=== PATIENT | female | born 1940 | race Caucasian/White ===

== ENCOUNTER → 2019-07-23 | Outpatient (CLI) | payer OTHER | LOC: M.MRI 07-09 08:30 | DX: S83.242A Other tear of medial meniscus, current injury, left knee, initial encounter (principal); M71.22 Synovial cyst of popliteal space [Baker], left knee; M17.12 Unilateral primary osteoarthritis, left knee; X58.XXXA Exposure to other specified factors, initial encounter; Y93.89 Activity, other specified; Y92.89 Other specified places as the place of occurrence of the external cause; Y99.8 Other external cause status ==

== ENCOUNTER 2019-08-25 08:23 | Inpatient (IN) | payer OTHER ==
[2019-08-13 09:25] LABS: HEMATOCRIT 36.1 % (37.0-47.0); HEMOGLOBIN 11.6 gm/dL (12.0-15.0); MCH 24.7 pg (26.0-34.0); MCHC 32.2 g/dL (28.0-37.0); MCV 76.7 fL (80.0-100.0); MPV 6.8 fl. (7.2-11.1); RBC 4.7 mil/uL (4.20-5.00); RDW-CV 18.7 % (10.5-14.5); WBC 9.6 thou/uL (4.0-11.0)
[2019-08-13 09:35] LABS: INR 1.3; PROTIME 12.9 Seconds (9.20-11.50)
[2019-08-13 09:37] LABS: ALBUMIN 3.2 g/dL (3.4-5.0); CREATININE 1.4 mg/dL (0.6-1.3); TOTAL BILIRUBIN 0.6 mg/dL (<0.1-1.0); TOTAL PROTEIN 7.2 g/dL (6.4-8.2)
[2019-08-13 11:15] LABS: URINE BILIRUBIN NEGATIVE (Negative); URINE BLOOD NEGATIVE (Negative); URINE CLARITY CLEAR; URINE COLOR YELLOW; URINE GLUCOSE-RANDOM NEGATIVE (Negative); URINE KETONES NEGATIVE (Negative); URINE LEUKOCYTES-REFLEX NEGATIVE (Negative); URINE NITRITE-REFLEX NEGATIVE (Negative); URINE PROTEIN TRACE (Negative); URINE UROBILINOGEN 0.2 E.U./dl (0.2-1.0)
[~2019-08-25] VITALS: Ht 157.5 cm; Wt 117.9 kg
[~2019-08-25 08:23] MED LIST: COUMADIN 5 MG TA5 M1 PO; LASIX 80 MG TAB80 MG PO; LIORESAL 10 MG10 MG PO; MAGOX 400400 MG PO; MELATONIN5 M1 PO; METOLAZONE 2.52.5 M1 PO; OMEPRAZOLE 20 M20 M1 PO; OXYCONTIN10 M1 PO; POTASSIUM20 PO; SERTRALINE HCL50 MG PO; SYNTHROID75 MCG PO; TOPROL XL25 MG PO; TRAZODONE HCL100 MG PO; XARELTO20 MG PO; ZOCOR20 MG PO
[2019-08-25 08:50] VITALS: BP 143/80
[2019-08-25 09:38] LABS: INR 1.2; PROTIME 11.9 Seconds (9.20-11.50)
[2019-08-25 14:27] VITALS: BP 100/54
--- NOTE | 2019-08-25 14:38 | NUR ---
PT ARRIVED TO UNIT AT 1410 FROM PACU. VITALS STABLE, CHARTED. IV PATENT, INFUSING. PAIN PARTIALLY CONTROLLED WITH MEDS GIVEN IN PACU, NONE REQUIRED AT THIS TIME. DENIED N/V. DRESSING C/D/I. NO HEMOVAC. TEDS, FOOT PUMPS, SEAN WRAP, CAPNO AND POLAR PACK IN PLACE. ON 2LO2. FAMILY IN ROOM. CALL LIGHT WITHIN REACH. FALL PRECAUTIONS IN [place]. WILL CONTINUE TO MONITOR.
[2019-08-25 16:00] VITALS: BP 107/64
--- NOTE | 2019-08-25 17:36 | NUR ---
PT RESTING SINCE PREVIOUS NOTE. VITALS STABLE. IV PATENT. DRESSING C/D/I. POLAR PACK, TEDS, SCDS, CAPNO, OXYGEN AND SEAN WRAP IN PLACE. PAIN TOLERATED. CALL LIGHT WITHIN REACH. TOLERATING FOOD. HAS URINATED. FALL PREACAUTIONS IN PLACE. WILL CONTINUE TO MONITOR.
[2019-08-25 21:30] VITALS: BP 125/64
[2019-08-26] VITALS: BP 124/84
[2019-08-26 04:00] VITALS: BP 124/65
[2019-08-26 05:04] LABS: HEMATOCRIT 27.9 % (37.0-47.0); HEMOGLOBIN 8.8 gm/dL (12.0-15.0)
--- NOTE | 2019-08-26 07:16 | NUR ---
PT ALERT AND ORIENTED. VITALS STABLE WITH 2L BY NC. MEDS GIVEN ORDERED. PAIN MANAGED BY NORCO. DRESSING TO LT KNEE C/D/I. PT UP TO BSC WITH MAX ASSIST. NO NAUSEA OR VOMITING. POLAR PACK, SCDS IN PLACE. FLUID RUNNING ORDERED. HOURLY ROUNDING COMPLETED. WILL CONTINUE TO MONITOR.
[2019-08-26 07:45] VITALS: BP 144/65
--- NOTE | 2019-08-26 08:47 | NUR ---
DEFER TO PT. NO OT AT THIS TIME, UNLESS REFERED BY PT
--- NOTE | 2019-08-26 13:22 | NUR ---
SPOKE WITH PT.AND DAUGHTER, SWETHA, ABOUT ROLE OF CM AND DISCHARGE PLANS. PT.LIVES ALONE IN A HOUSE. IS NORMALLY INDEPENDENT BUT DOES NOT HAVE ASSSISTANCE AFTER DISCHARGE. DAUGHTER CAN HELP HER IN THE EVENINGS BUT CAN'T STAY WITH HER ALL THE TIME. GAVE AND DISCUSSED LIST OF SNFS THAT CONTRACT WITH HER INSURNACE. SHE WANTS TO GO TO REHAB. TOLD HER SHE CANNOT GO A AN ACTUAL ACUTE REHAB UNIT AFTER AN ELECTIVE SURGERY. THEY WILL LOOK AT LIST AND CHOOSE 2 CHOICES OF FACILITIES.
[2019-08-26 16:35] VITALS: BP 123/56
--- NOTE | 2019-08-26 17:39 | NUR ---
PT REMAINED ALERT AND ORIENTED. PT GIVEN PAIN MEDS ORDERED. HOME MEDS RECONCILLED AND ORDERED. FALL RISK PRECAUTIONS IN PLACE. HOURLY ROUNDING COMPLETED. WILL CONTINUE TO MONITOR.
[2019-08-26 21:25] VITALS: BP 114/56
[2019-08-27 03:59] LABS: HEMATOCRIT 31.8 % (37.0-47.0); HEMOGLOBIN 9.6 gm/dL (12.0-15.0)
--- NOTE | 2019-08-27 04:58 | NUR ---
VSS RA. MEDS GIVEN ORDERED. PAIN MANAGED WITH OXY IR AND NORCO. PT UP TO BSC WITH MAX ASSIST. HOURLY ROUNDING COMPLETED. WILL CONTINUE TO MONITOR.
[2019-08-27 08:00] VITALS: BP 132/59
--- NOTE | 2019-08-27 11:31 | NUR ---
[facility] CAME TO SEE PT. SHE SAID THEY CAN ACCEPT PT.TO A SKILLED BED PENDING INSURANCE AUTHORIZATION. OT EVAL COMPLETE AND FAXED TO [facility].
[2019-08-27 16:00] VITALS: BP 137/77
--- NOTE | 2019-08-27 18:38 | NUR ---
PATIENT PLEASANT AND COOPERATIVE THRU SHIFT. SEE MAR. NOTED LESS STIFF W/ SURGICAL LEG THIS AFTERNOON. UP TO RECLINER THRU MOST OF SHIFT. CALL LIGHT IN REACH. ALERT AND ORIENTED. USING FWW AND GAIT BELT W/ TRANSFERS AND AMBULATION. HOURLY ROUNDS DONE. ~TJRN
[2019-08-27 19:50] VITALS: BP 124/73
--- NOTE | 2019-08-28 05:22 | NUR ---
PATIENT REQUEST PAIN MEDICATION 2X GAVE OXYCODONE 10MG UPON REQUEST. SHE IS STILL HAVING DIFFICULTY GETTING UP AND OUT OF BED. SHE NEEDS ASSISTANCE TO GET TO COMMODE WITH WALKER AND GAIT BELT. SHE GETS SOB WHEN HAVING TO GET UP AND MOVE TO THE SIDE OF THE BED BUT CAN PULL HERSELF UP ONE LYING DOWN TO POSITION HERSELF. LEFT ANKLE HAS SOME SWELLING BUT DRESSING ON LEFT KNEE IS C/D/I. PLAN MAYBE FOR SNF PLACEMENT. SHE SLEPT WELL THROUGH THE NIGHT. WILL CONTINUE TO MONITOR.
[2019-08-28 08:00] VITALS: BP 131/58
--- NOTE | 2019-08-28 11:24 | NUR ---
PT.TO DISCHARGE TO SNF AT [facility]. HAS DISCHARGE ORDERS. FAXED ORDERS AND ORTHOPEDIC ORDERS TO [facility]. [facility] CALLED AND THEY DO HAVE INSURANCE AUTH. SHE WILL SCHEDULE [facility] FOR 1330. CHART COPIED TO GO WITH PT. GAVE RN NUMBER TO CALL REPORT. INFORMED PT. OF TIME OF TRANSFER.
[2019-08-28 11:57] VITALS: BP 131/65
--- NOTE | 2019-08-28 13:40 | NUR ---
PATIENT DISCHARGED FROM UNIT AT 1330. ALERT AND ORIENTED X 4. VITAL SIGNS STABLE ON ROOM AIR. UP WITH ASSIST OF ONE. IV DISCONTINUED. DENIES NAUSEA. PAIN BEING MANAGED WITH PO MEDICATION. DISCHARGE INSTRUCTIONS, MEDICATION INFORMATION, AND SCRIPTS PLACED IN PACKET AND GIVEN TO TRANSPORTER. PATIENT DISCHARGED WITH TRANSPORTER TO [facility]. LEFT WITH ALL BELONGINGS. CALL REPORT TO STORMY LUCIA.
--- NOTE | 2019-09-10 08:26 | OP ---
[facility] [address] [place] [address] OPERATIVE REPORT Name: SANDY MARCUM Room: [address] IN M.R.#: [id number] Admission: 08/25/19 Attend Phys: Shilpi Martell Discharge: 08/28/19 Date of : 42 Report #: [id number] THIS REPORT FOR: //name// CC: [address] DATE OF SERVICE: 08/25/2019 PREOPERATIVE DIAGNOSIS: Left knee osteoarthritis. POSTOPERATIVE DIAGNOSIS: Left knee osteoarthritis. PROCEDURE: Left total knee arthroplasty. SURGEON: Jamey Bonds II, DO COURT RECORDING MONITOR: REILLY Gonzalez ANESTHESIA: General endotracheal. ESTIMATED BLOOD LOSS: 50 mL. ANTIBIOTICS: Ancef preoperatively. DRAINS: Medium Hemovac. COMPLICATIONS: None. CONDITION: The patient is stable to recovery room. IMPLANTS: Listed in operative record and progress note. BRIEF HISTORY: The patient was seen in the preoperative area. Preoperative H and P was performed. Site was marked, questions were answered. Risks and benefits were discussed with the patient in detail about surgery. The patient wished to proceed, assuming all risks. DESCRIPTION OF PROCEDURE: The patient was taken to the operative suite and placed supine on the operating table in appropriate anesthesia. A well-padded tourniquet applied to the upper thigh, which was inflated to 300 mmHg after gravity exsanguination. The operative knee was sterilely prepped and draped. Surgery began by midline incision. This was carried down to the subcutaneous tissues. A medial parapatellar arthrotomy was performed and carried down to bone. Patella was then everted and excess soft tissue removed from around the [address] [address] OPERATIVE REPORT Name: SANDY MARCUM Room: [address] IN [facility].#: [id number] Admission: 08/25/19 Attend Phys: Shilpi Martell Discharge: 08/28/19 Date of : 42 Report #: [id number] femur. Femoral cutting block was then applied, checked with a drop michelle for rotational alignment, pinned in appropriate position and appropriate cuts were made. A 4-in-1 cutting block was then applied, checked for rotational alignment, pinned into appropriate position and appropriate cuts were made. The tibia was then exposed and excess meniscus was removed. Retractor was placed on collateral ligaments. Tibial cutting block was then applied, checked with a drop michelle for rotational alignment and slope, pinned in appropriate position and appropriate cuts were made. The tibial bone was removed. Tibial base plate was then applied, checked for rotational alignment with the drop michelle and pinned into appropriate position. The femur was then applied and box cut was reamed. This was then trialed with appropriate spacer, which showed excellent fit and fill and excellent stability of the knee through all range of motion. The patella was reamed in appropriate fashion and sized to appropriate size. Three peg holes were drilled and it was then trialed and showed excellent flexion and extension, excellent tracking of the patella within the groove. These trials were removed. The tibia was punched in appropriate fashion. Bone ends were cleansed with Pulsavac irrigation and cement was mixed and applied to final implants. These were malleted into position and held the knee in extension and compressed to allow cement to cure. After it cured, excess was removed using [place] and osteotome. The wound was then copiously irrigated and the final spacer was then malleted into position. Tourniquet was deflated. Hemostasis was obtained with electrocautery. Pain cocktail was injected. PRP gel was sprayed throughout the internal aspects of the knee. Medium Hemovac drain was applied. Capsule was closed with #2 FiberWire and #1 Vicryl in [id number] fashion. Skin was closed with 2-0 Vicryl and running 3-0 Monocryl. Dermabond and sterile dressing applied. Danny wrap and PolarCare applied. The patient transported to recovery room in stable condition. Counts were correct throughout the procedure. <ELECTRONICALLY SIGNED> By: Jamey Bonds II, DO 09/10/19 0826 [id number] Bonds II, DO /nt
== END 2019-08-28 13:30 | DRG 470 ==
LOC: M.PRE → M.ORTHSURG 08:39 → M.TBA 08:39 → M.PRE 10:39 → M.ORTHSURG 13:46 → M.PRE 13:49 → M.ORTHSURG 08-28 13:30
PROVIDERS: Anesthesiology; Orthopaedic Surgery; ADMIT Internal Medicine
PROC: 0SRD0J9 Replacement of Left Knee Joint with Synthetic Substitute, Cemented, Open Approach (ICD-10-PCS; principal; 2019-08-25)
DX: M17.12 Unilateral primary osteoarthritis, left knee (principal); D62 Acute posthemorrhagic anemia; Z68.42 Body mass index [BMI] 45.0-49.9, adult; I48.91 Unspecified atrial fibrillation; E03.9 Hypothyroidism, unspecified; E78.5 Hyperlipidemia, unspecified; K21.9 Gastro-esophageal reflux disease without esophagitis; E66.01 Morbid (severe) obesity due to excess calories; Z88.5 Allergy status to narcotic agent; Z88.2 Allergy status to sulfonamides; Z88.6 Allergy status to analgesic agent; Z86.73 Personal history of transient ischemic attack (TIA), and cerebral infarction without residual deficits; Z79.899 Other long term (current) drug therapy; Z90.710 Acquired absence of both cervix and uterus

== ENCOUNTER → 2019-10-02 | Outpatient (CLI) | payer OTHER | LOC: M.WC 07:40 | DX: T81.89XA Other complications of procedures, not elsewhere classified, initial encounter (principal); E07.89 Other specified disorders of thyroid; E66.01 Morbid (severe) obesity due to excess calories; F32.9 Major depressive disorder, single episode, unspecified; Z86.73 Personal history of transient ischemic attack (TIA), and cerebral infarction without residual deficits; Z68.43 Body mass index [BMI] 50.0-59.9, adult; Z90.710 Acquired absence of both cervix and uterus; Z98.49 Cataract extraction status, unspecified eye; Z96.649 Presence of unspecified artificial hip joint; Y92.89 Other specified places as the place of occurrence of the external cause; Y83.8 Other surgical procedures as the cause of abnormal reaction of the patient, or of later complication, without mention of misadventure at the time of the procedure ==

== ENCOUNTER → 2019-10-15 | Outpatient (CLI) | payer OTHER | LOC: M.WC 05:01 | DX: T81.89XD Other complications of procedures, not elsewhere classified, subsequent encounter (principal); E07.89 Other specified disorders of thyroid; F32.9 Major depressive disorder, single episode, unspecified; Z96.652 Presence of left artificial knee joint; Z86.73 Personal history of transient ischemic attack (TIA), and cerebral infarction without residual deficits; Y83.8 Other surgical procedures as the cause of abnormal reaction of the patient, or of later complication, without mention of misadventure at the time of the procedure ==

== ENCOUNTER → 2019-10-22 | Outpatient (CLI) | payer OTHER | LOC: M.WC 05:27 | DX: T81.89XD Other complications of procedures, not elsewhere classified, subsequent encounter (principal); F32.9 Major depressive disorder, single episode, unspecified; Z86.73 Personal history of transient ischemic attack (TIA), and cerebral infarction without residual deficits; Y83.8 Other surgical procedures as the cause of abnormal reaction of the patient, or of later complication, without mention of misadventure at the time of the procedure ==

== ENCOUNTER → 2019-10-29 | Outpatient (CLI) | payer OTHER | LOC: M.WC 04:50 | DX: T81.89XD Other complications of procedures, not elsewhere classified, subsequent encounter (principal); E07.89 Other specified disorders of thyroid; E66.01 Morbid (severe) obesity due to excess calories; F32.9 Major depressive disorder, single episode, unspecified; Z68.43 Body mass index [BMI] 50.0-59.9, adult; Z86.73 Personal history of transient ischemic attack (TIA), and cerebral infarction without residual deficits; Z96.652 Presence of left artificial knee joint; Y83.8 Other surgical procedures as the cause of abnormal reaction of the patient, or of later complication, without mention of misadventure at the time of the procedure ==

== ENCOUNTER → 2019-11-05 | Outpatient (CLI) | payer OTHER | LOC: M.WC 01:42 | DX: T81.89XD Other complications of procedures, not elsewhere classified, subsequent encounter (principal); L03.116 Cellulitis of left lower limb; E07.89 Other specified disorders of thyroid; E66.01 Morbid (severe) obesity due to excess calories; F32.9 Major depressive disorder, single episode, unspecified; Z96.652 Presence of left artificial knee joint; Z86.73 Personal history of transient ischemic attack (TIA), and cerebral infarction without residual deficits; Z68.43 Body mass index [BMI] 50.0-59.9, adult; Y83.8 Other surgical procedures as the cause of abnormal reaction of the patient, or of later complication, without mention of misadventure at the time of the procedure ==

== ENCOUNTER → 2019-11-12 | Outpatient (CLI) | payer OTHER | LOC: M.WC 08:00 | DX: T81.89XD Other complications of procedures, not elsewhere classified, subsequent encounter (principal); L03.116 Cellulitis of left lower limb; E66.01 Morbid (severe) obesity due to excess calories; E07.89 Other specified disorders of thyroid; F32.9 Major depressive disorder, single episode, unspecified; Z68.43 Body mass index [BMI] 50.0-59.9, adult; Z86.73 Personal history of transient ischemic attack (TIA), and cerebral infarction without residual deficits; Y83.8 Other surgical procedures as the cause of abnormal reaction of the patient, or of later complication, without mention of misadventure at the time of the procedure ==

== ENCOUNTER → 2019-11-19 | Outpatient (CLI) | payer OTHER | LOC: M.WC 04:05 | DX: T81.89XD Other complications of procedures, not elsewhere classified, subsequent encounter (principal); L03.116 Cellulitis of left lower limb; I89.0 Lymphedema, not elsewhere classified; I50.9 Heart failure, unspecified; E66.01 Morbid (severe) obesity due to excess calories; E07.89 Other specified disorders of thyroid; F32.9 Major depressive disorder, single episode, unspecified; Z68.43 Body mass index [BMI] 50.0-59.9, adult; Z86.73 Personal history of transient ischemic attack (TIA), and cerebral infarction without residual deficits; Z96.652 Presence of left artificial knee joint; Y83.8 Other surgical procedures as the cause of abnormal reaction of the patient, or of later complication, without mention of misadventure at the time of the procedure ==